=== PATIENT | female | born 1960 | race Two or more races ===

== ENCOUNTER 2018-06-16 19:21 | Emergency (ER) | payer OTHER ==
[~2018-06-16] VITALS: Ht 162.6 cm; Wt 76.2 kg
[~2018-06-16 19:21] MED LIST: CIPRO500 MG; SYNTHROID75 MCG; ZANTAC300 MG PO
[2018-06-16] MEDS ORDERED: LEVOXYL25 MCG (20:03)
[2018-06-16] MEDS ORDERED: DICLOFENAC POTA50 MG PO (20:56)
[2018-06-16] MEDS ORDERED: DIAZEPAM10 MG PO (20:56)
== END 2018-06-16 21:32 | disposition home or self-care (01) ==
LOC: ER 19:21
DX: M46.1 Sacroiliitis, not elsewhere classified (principal)

== ENCOUNTER 2023-09-16 08:24 | Emergency (ER) | payer OTHER ==
[~2023-09-16] VITALS: Ht 160 cm; Wt 76.2 kg
[~2023-09-16 08:24] MED LIST changes: +DIAZEPAM10 MG PO; +DICLOFENAC POTA50 MG PO; +LEVOXYL25 MCG
[2023-09-16] MEDS ORDERED: LEVOXYL75 MCG PO (08:51)
[2023-09-16 09:47] LABS: ABG PH 7.432 (7.35-7.45); ABG PO2 84.7 mmHg (80-100); ABG pCO2 39.4 mmHg (35-45); BASE EXCESS 1.5 mmol/l; BICARBONATE 25.7 mmol/l (23-25); SaO2 96.7 %
[2023-09-16 09:48] LABS: Tco2 26.9 mmol/l; allen test SATISFACTORY; o2 21 %; puncture site RADIAL RIGHT
[2023-09-16 10:11] LABS: MEAN CELL VOLUME 82.6 fL (80.00-100.00); MEAN CORPUSCULAR HEMOGLOBIN 27.6 pg (27.00-32.0); MEAN CORPUSCULAR HGB CONC 33.5 g/dl (32.0-36.0); PLATELET COUNT 298 K/uL (150-450); RED BLOOD COUNT 4.72 M/uL (4.00-6.00); RED CELL DISTRIBUTION WIDTH 14.1 % (11.5-14.5)
[2023-09-16] MEDS ORDERED: ZITHROMAX500 MG PO (11:02)
[2023-09-16] MEDS ORDERED: TUSNEL LIQUID178 ML PO (11:04)
== END 2023-09-16 11:28 | disposition home or self-care (01) ==
LOC: ER 08:25
PROVIDERS: Emergency Medicine
DX: J22 Unspecified acute lower respiratory infection (principal); R05.9 Cough, unspecified; Z20.822 Contact with and (suspected) exposure to COVID-19; E03.8 Other specified hypothyroidism; Z88.0 Allergy status to penicillin